=== PATIENT | male | born 1940 | race Caucasian/White ===

== ENCOUNTER 2020-04-23 13:22 | Emergency (ER) | payer MEDICARE, OTHER ==
[~2020-04-23] VITALS: Ht 180.3 cm; Wt 87.5 kg
[2020-04-23] MEDS ORDERED: Tetanus/Diptheria/Pertussis IM ONE (13:30)
--- NOTE | 2020-04-23 13:43 | NUR ---
ED Nurse Note: Patient brought in by ambulance from friend's house s/p fall. Patient is aox4, on room air, breathing even and unlabored. Patient states he missed steps, turned around and fell forward and hit the face against the planter. Laceration on the left eyebrow noted, about 4cm. Bleeding controlled at this time. Denies loss of consciousness. Denies n/v/shaffer. Patient states he has hx of HTN, denies taking blood thinners. ERMD/ER PA seen and assessed the patient.
--- NOTE | 2020-04-23 13:44 | NUR ---
ED Nurse Note: patient states there was also epistaxis, but none when arrived in ED. Patient is afebrile, no SOB.
[2020-04-23 13:48] VITALS: BP 136/73
--- NOTE | 2020-04-23 13:54 | NUR ---
ED Nurse Note: Patient was picked up for CT scan.
--- NOTE | 2020-04-23 14:03 | Emergency Room Report ---
History of Present Illness General Chief Complaint: Multiple Trauma/Fall Source: Patient, EMS (Stella Garcia) Present Illness HPI 79-year-old male presents to the emergency department complaining of 8 out of 10 severity tenderness to the face along the left eyebrow as well as the nasal bridge x2 hours. Patient also is reporting left eyebrow laceration. Patient reports bleeding has subsided at this time. He denies taking blood thinning medications. Patient states that he had a mechanical trip and fall outside and he hit his head on a planter. Patient denies loss of consciousness. He denies visual changes, pain with eye movements or blurry vision. He does report that he did have a nosebleed which also subsided prior to arrival. Pt. denies dizziness, ARROYO or difficulty with memory or speech. Pt. denies Midline neck or back pain. He reports having a small cut to the right index finger where he attempted to break his fall/catch himself. Pt. denies finger, hand or wrist pain /tenderness. He denies suspicion of fractures or injuries anywhere else other than the face. Pt. reports only significant pmHx. is HTN which is controlled with medications. Pt. is not sure when his last tetanus vaccination was. Pt. reports recent dental work for which he was rx'd some pain medications for. Pt. denies any other aggravating or relieving factors at this time. (Stella Garcia) Allergies: Coded Allergies: No Known Allergies (Unverified , 04/23/20) COVID-19 Screening Contact w/high risk pt: No Recent Travel to affected area: No Experienced COVID-19 symptoms?: No COVID-19 Testing performed DIGITAL FORENSIC ANALYST: No (Stella Garcia) Patient History Past Medical History: see triage record, HTN Past Surgical History: none Pertinent Family History: none Reviewed Nursing Documentation: PMH: Agreed; PSxH: Agreed (Stella Garcia) Nursing Documentation-PMH Past Medical History: No History, Except For Hx Hypertension: Yes (Stella Garcia) Review of Systems All Other Systems: negative except mentioned in HPI (Stella Garcia) Physical Exam Vital Signs Date Time Temp Pulse Resp B/P (MAP) Pulse Ox O2 Delivery O2 Flow Rate FiO2 04/23/20 13:31 97.3 52 16 127/63 (84) 99 Room Air Sp02 EP Interpretation: reviewed, normal General Appearance: no apparent distress, alert, GCS 15, non-toxic Head: normocephalic, other - 4 cm left eyebrow laceration. visible deformity of the nasal bridge with moderate swelling, evidence of epistaxis, no septal hematoma. No raccon eyes Eyes: bilateral eye normal inspection, bilateral eye PERRL, bilateral eye EOMI , bilateral eye other - no photophobia. Some slight swelling to the right lower lid. no hematomas. ENT: hearing grossly normal, normal voice, other - visible deformity of the nasal bridge with moderate swelling, evidence of epistaxis, no septal hematoma. Neck: full range of motion, no bony tend Respiratory: lungs clear, normal breath sounds, speaking full sentences Cardiovascular #1: regular rate, rhythm Gastrointestinal: non tender, soft Musculoskeletal: back normal, normal range of motion, gait/station normal, tender - nasal bridge tenderness. , swelling - nasal bridge- moderate Neurologic: alert, motor strength/tone normal, oriented x3, sensory intact, responsive, speech normal, grossly normal, other - Patient providing appropriate answers to questions with sufficient amount of detail without increase in response time or difficulty with word recall. Psychiatric: judgement/insight normal Skin: laceration - 4 cm left eyebrow laceration. 0.3 cm superficial nasal bridge laceration on the left side. 1cm skin avulsion of the right index finger. (Stella Garcia) Procedures Laceration/Wound Repair Laceration/Wound Repair : Consent: Verbal Wound Location: face - left eyebrow Wound's Depth, Shape: linear Wound Length (cm): 4 Wound Explored: clean Irrigated w/ Saline (ccs): 500 Anesthesia: Lidocaine w/ Epi Volume Anesthetic (ccs): 5 Wound Repaired With: sutures Suture Size/Type: 5:0 Number of Sutures: 10 Layer Closure?: No Splint Applied?: No Sling Applied?: No Patient Tolerated: Well Complications: None (Stella Garcia) Medical Decision Making PA Attestation Dr. Dumont is my supervising Physician whom patient management has been discussed with. (Stella Garcia) Diagnostic Impression: Primary Impression: Comminuted fracture Additional Impressions: Fractured nasal bones Qualified Codes: S02.2XXA - Fracture of nasal bones, initial encounter for closed fracture Orbital floor fracture Qualified Codes: S02.31XA - Fracture of orbital floor, right side, initial encounter for closed fracture Maxillary sinus fracture Qualified Codes: S02.401A - Maxillary fracture, unspecified side, initial encounter for closed fracture Facial laceration Qualified Codes: S01.81XA - Laceration without foreign body of other part of head, initial encounter ER Course 79-year-old male presents to the emergency department complaining of 8 out of 10 severity tenderness to the face along the left eyebrow as well as the nasal bridge x2 hours. Patient also is reporting left eyebrow laceration. Patient reports bleeding has subsided at this time. He denies taking blood thinning medications. Patient states that he had a mechanical trip and fall outside and he hit his head on a planter. Patient denies loss of consciousness. He denies visual changes, pain with eye movements or blurry vision. He does report that he did have a nosebleed which also subsided prior to arrival. Pt. denies dizziness, ARROYO or difficulty with memory or speech. Pt. denies Midline neck or back pain. He reports having a small cut to the right index finger where he attempted to break his fall/catch himself. Pt. denies finger, hand or wrist pain /tenderness. He denies suspicion of fractures or injuries anywhere else other than the face. Pt. reports only significant pmHx. is HTN which is controlled with medications. Pt. is not sure when his last tetanus vaccination was. Pt. reports recent dental work for which he was rx'd some pain medications for. Pt. denies any other aggravating or relieving factors at this time. Ddx considered but are not limited to Fracture, dislocation, contusion, concussion Sprain/Strain/Spasm, hematoma, laceration, orbital injury just to name a few. Vital signs: are WNL, pt. is afebrile. H&PE are most consistent with 4cm left eyebrow laceration, and possible nasal fracture, no evidence of focal neurological deficit, no loss of consciousness. No visual symptoms, no pain with EOMI testing. ORDERS: -CT Head no Contrast: WNL- no intracranial injury. -CT Facial Bones no Contrast: complicated comminuted nasal fractures in addition to fracture of orbital wall, floor, and portions of the frontal and maxillary sinuses. Per official radiology report- Please see report for specific details. -CBC: WNL -BMP: Cr. 1.4 - PT/PTT: WNL ED INTERVENTIONS: - Laceration repair. - Pt. declines Tylenol Due to complex nature of facial/ nasal fractures pt. should be evaluated closely by Trauma maxillofacial surgeon and gas regulator repairer helper. Efforts were made to have pt. transferred to trauma hosp. with higher level of care and appropriate specialty consults. DISPOSITION: Pending transfer of care to trauma Hosp.-- [facility]- accepting trauma Dr. garcia Labs Test 04/23/20 16:10 White Blood Count 7.1 K/UL (4.8-10.8) Red Blood Count 4.58 M/UL (4.70-6.10) Hemoglobin 14.5 G/DL (14.2-18.0) Hematocrit 41.9 % (42.0-52.0) Mean Corpuscular Volume 92 FL (80-99) Mean Corpuscular Hemoglobin 31.6 PG (27.0-31.0) Mean Corpuscular Hemoglobin Concent 34.5 G/DL (32.0-36.0) Red Cell Distribution Width 11.0 % (11.6-14.8) Platelet Count 144 K/UL (150-450) Mean Platelet Volume 7.2 FL (6.5-10.1) Neutrophils (%) (Auto) % (45.0-75.0) Lymphocytes (%) (Auto) % (20.0-45.0) Monocytes (%) (Auto) % (1.0-10.0) Eosinophils (%) (Auto) % (0.0-3.0) Basophils (%) (Auto) % (0.0-2.0) Differential Total Cells Counted 100 Neutrophils % (Manual) 85 % (45-75) Lymphocytes % (Manual) 11 % (20-45) Monocytes % (Manual) 4 % (1-10) Eosinophils % (Manual) 0 % (0-3) Basophils % (Manual) 0 % (0-2) Band Neutrophils 0 % (0-8) Platelet Estimate Adequate Platelet Morphology Normal Red Blood Cell Morphology Normal Prothrombin Time 11.4 SEC (9.30-11.50) Prothromb Time International Ratio 1.0 (0.9-1.1) Activated Partial Thromboplast Time 24 SEC (23-33) Sodium Level 142 MMOL/L (136-145) Potassium Level 3.3 MMOL/L (3.5-5.1) Chloride Level 104 MMOL/L (98-107) Carbon Dioxide Level 28 MMOL/L (21-32) Anion Gap 10 mmol/L (5-15) Blood Urea Nitrogen 23 mg/dL (7-18) Creatinine 1.4 MG/DL (0.55-1.30) Estimat Glomerular Filtration Rate 48.8 mL/min (>60) Glucose Level 140 MG/DL (74-106) Calcium Level 9.0 MG/DL (8.5-10.1) (Stella Garcia) CT/MRI/US Diagnostic Results CT/MRI/US Diagnostic Results #1: Imaging Test Ordered: CT Head No Contrast Impression " Impression: Complex facial fracture-please refer to separate facial CT report. Negative for acute intracranial bleed or mass effect. Chronic and age- related changes as described" Per official radiology report- Please see report for specific details. CT/MRI/US Diagnostic Results #2: Imaging Test Ordered: CT Facial Bones No Contrast Impression " Findings: There is a complex nasal/facial fracture. The nasal fracture is comminuted, involves both sides of the nasal bone. The main fracture line runs along the right side of the nasal bone, extends cephalad into the roof of the nasal bone, makes a vertically oriented fracture of the outer table of the frontal sinuses, predominantly on the right but also extending just to the left of midline. This also extends into the anterior orbital roof on the right there is buckling of the septum between the right and left frontal sinuses which extends into the friedman of a few anterior ethmoid air cells. A fracture line also extends along the left side of the nasal bone, which is comminuted and minimally displaced. There is a vertically a slight buckle fracture of the nasal septum. There is a fracture line extending slightly into the right orbital floor and the medial wall of the right maxillary sinus. Air-fluid levels , likely indicating acute hemorrhage, are seen in both maxillary sinuses and in the bilateral frontal sinuses. There is evidence of a laceration of the left supraorbital soft tissues. Gas within the midline and left supraorbital soft tissues is also noted. The optic globes are intact. There is some soft tissue swelling in the right infraorbital region. The mandible is intact. The dentition is grossly intact although partially obscured by streak artifact from dental amalgam. The visualized intracranial structures are unremarkable. Impression: Complex nasal/paranasal sinus fracture as described in detail above. "---- Per official radiology report- Please see report for specific details. (Stella Garcia) Last Vital Signs Date Time Temp Pulse Resp B/P (MAP) Pulse Ox O2 Delivery O2 Flow Rate FiO2 04/23/20 13:48 97.3 60 16 136/73 95 Room Air (Stella Garcia) Disposition: ADMITTED INPATIENT Condition: Serious Stella Garcia Apr 23, 2020 14:03 Vaibhav Dumont MD Apr 24, 2020 23:14
--- NOTE | 2020-04-23 14:05 | NUR ---
ED Nurse Note: Patient back from CT via gurney, no distress noted. Patient remains aox4.
[2020-04-23] MEDS ORDERED: Lidocaine 2% 20mg/ml/EPI 0.01mg/ml 20ml INJ ONE (14:15)
--- NOTE | 2020-04-23 14:28 | NUR ---
ED Nurse Note: ERPA at bedside for lac repair.
[2020-04-23 14:57] VITALS: BP 146/69
--- NOTE | 2020-04-23 14:58 | Diagnostic Imaging Report ---
Indications: Head trauma, head pain Technique: Spiral acquisitions obtained through the brain. Angled axial and coronal 5 x 5 mm slices were reconstructed. Total dose length product 1390 mGycm. CTDI vol(s) 53, 15 mGy. Dose reduction achieved using automated exposure control Comparison: None. Findings: There is age-related enlargement of the ventricles and extra-axial CSF spaces. There is periventricular low-attenuation, consistent with chronic microvascular ischemic change. No acute intracranial hemorrhage or edema. No mass effect nor midline shift. There are air-fluid levels in multiple sinuses. There is a complex facial fracture-please refer to separate facial CT report. There is evidence of associated soft tissue trauma as well. Impression: Complex facial fracture-please refer to separate facial CT report Negative for acute intracranial bleed or mass effect Chronic and age-related changes as described The CT scanner at [facility] is accredited by the [employer] and the scans are performed using protocols designed to limit radiation exposure to as low as reasonably achievable to attain images of sufficient resolution adequate for diagnostic evaluation.
[2020-04-23] MEDS ORDERED: Bacitracin Oint UD TOPIC ONE (15:00)
--- NOTE | 2020-04-23 15:05 | Diagnostic Imaging Report ---
Indications: Trauma, pain Technique: Spiral images obtained through the facial bones. No IV contrast utilized. Multiplanar reconstructions were generated.Total dose length product 361 mGycm. CTDIvol(s) 15 mGy. Dose reduction achieved using automated exposure control Comparison: none Findings: There is a complex nasal/facial fracture. The nasal fracture is comminuted, involves both sides of the nasal bone. The main fracture line runs along the right side of the nasal bone, extends cephalad into the roof of the nasal bone, makes a vertically oriented fracture of the outer table of the frontal sinuses, predominantly on the right but also extending just to the left of midline. This also extends into the anterior orbital roof on the right there is buckling of the septum between the right and left frontal sinuses which extends into the friedman of a few anterior ethmoid air cells. A fracture line also extends along the left side of the nasal bone, which is comminuted and minimally displaced. There is a vertically a slight buckle fracture of the nasal septum. There is a fracture line extending slightly into the right orbital floor and the medial wall of the right maxillary sinus. Air-fluid levels, likely indicating acute hemorrhage, are seen in both maxillary sinuses and in the bilateral frontal sinuses. There is evidence of a laceration of the left supraorbital soft tissues. Gas within the midline and left supraorbital soft tissues is also noted. The optic globes are intact. There is some soft tissue swelling in the right infraorbital region. The mandible is intact. The dentition is grossly intact although partially obscured by streak artifact from dental amalgam. The visualized intracranial structures are unremarkable. Impression: Complex nasal/paranasal sinus fracture as described in detail above. The CT scanner at [facility] is accredited by the [employer] and the scans are performed using protocols designed to limit radiation exposure to as low as reasonably achievable to attain images of sufficient resolution adequate for diagnostic evaluation.
--- NOTE | 2020-04-23 15:11 | NUR ---
ED Nurse Note: Patient remains in gurney, still aox4, no changes in mental status. No n/v. No distress.
--- NOTE | 2020-04-23 15:35 | NUR ---
ED Nurse Note: Ambulated to restroom with steady gait
--- NOTE | 2020-04-23 16:22 | NUR ---
ED Nurse Note: PIV on left FA 20g established, blood collected and sent to lab.
[2020-04-23 16:24] VITALS: BP 148/65
[2020-04-23 16:24] LABS: HEMATOCRIT 41.9 % (42.0-52.0); HEMOGLOBIN 14.5 G/DL (14.2-18.0); MEAN CORPUSCULAR VOLUME 92 FL (80-99); PLATELET COUNT 144 K/UL (150-450); RED BLOOD COUNT 4.58 M/UL (4.70-6.10); WHITE BLOOD COUNT 7.1 K/UL (4.8-10.8)
[2020-04-23 16:35] LABS: ANION GAP 10 mmol/L (5-15); BLOOD UREA NITROGEN 23 mg/dL (7-18); CARBON DIOXIDE 28 MMOL/L (21-32); CHLORIDE 104 MMOL/L (98-107); CREATININE 1.4 MG/DL (0.55-1.30); POTASSIUM 3.3 MMOL/L (3.5-5.1); SODIUM 142 MMOL/L (136-145)
--- NOTE | 2020-04-23 16:55 | NUR ---
ED Nurse Note: ERMD cancelled Covid rapid swab test d/t patient's complex nasal/facial fracture.
--- NOTE | 2020-04-23 17:05 | NUR ---
ED Nurse Note: Patient resting on the gurney, no acute distress noted. Informed and made aware that ambulance will pick him up at 1800. Instructed patient that he is NPO at this time, verbalized understanding.
--- NOTE | 2020-04-23 17:30 | NUR ---
ED Nurse Note: ERMD at bedside for Covid swab; sent down to lab. Patient tolerated well. No s/s of bleeding post swab, will continue to monitor.
[2020-04-23 17:38] VITALS: BP 147/76
--- NOTE | 2020-04-23 18:14 | NUR ---
ED Nurse Note: Patient ambulated to restroom with steady gait. Patient denies changes in vision, no n/v noted.
--- NOTE | 2020-04-23 18:23 | NUR ---
ED Nurse Note: Patient is back on the gurney, no acute distress noted at this time. Placed back on monitoring analyst. Safety measures in place. Still awaiting for Covid test results.
--- NOTE | 2020-04-23 18:34 | NUR ---
ED Nurse Note: Report given to Yahaira from [facility]; patient is assigned to room 7025. Patient remains on gurney, eyes closed at this time, no distress. Safety measures in place. Will continue to monitor.
--- NOTE | 2020-04-23 19:05 | NUR ---
ED Nurse Note: [facility] at bedside, report given.
[2020-04-23 19:12] VITALS: BP 147/76
--- NOTE | 2020-04-23 19:15 | NUR ---
ER DISCHARGE NOTE: Patient picked up by [facility] in stable condition. IV on left FA intact and patent. Remains aox4, no distress.
== END 2020-04-23 19:15 | disposition short-term general hospital (02) ==
LOC: EDBD 13:22 → EMR 13:53
DX: S02.2XXA Fracture of nasal bones, initial encounter for closed fracture (principal); S02.31XA Fracture of orbital floor, right side, initial encounter for closed fracture; S02.401A Maxillary fracture, unspecified side, initial encounter for closed fracture; S61.210A Laceration without foreign body of right index finger without damage to nail, initial encounter; S01.81XA Laceration without foreign body of other part of head, initial encounter; I10 Essential (primary) hypertension; W01.198A Fall on same level from slipping, tripping and stumbling with subsequent striking against other object, initial encounter; Y92.9 Unspecified place or not applicable; Z23 Encounter for immunization
CPT/HCPCS: 12013; 36415; 70450; 70486; 80048; 85007; 85025; 85610; 85730; 90471; 90715; 99285; U0002